=== PATIENT | male | born 1965 | race Caucasian/White ===

== ENCOUNTER 2017-05-02 16:01 | Emergency (ER) | payer MEDICAID ==
[~2017-05-02] VITALS: Ht 177.8 cm; Wt 81.7 kg
[2017-05-02] MEDS ORDERED: AUGMENTIN 875-1 EACH PO (16:21)
== END 2017-05-02 17:04 | disposition home or self-care (01) ==
LOC: ED 16:01
DX: J95.02 Infection of tracheostomy stoma (principal); Z88.5 Allergy status to narcotic agent
CPT/HCPCS: 87070; 87077; 87186; 87205; 96374; 99283; J0696